=== PATIENT | female | born 1985 | race Caucasian/White ===

== ENCOUNTER 2018-02-24 09:23 | Emergency (ER) | payer SELFPAY ==
[2018-02-24 09:36] VITALS: BP 160/101
--- NOTE | 2018-02-24 09:39 | ED Physician Documentation ---
General Adult - HISTORIAN Historian: patient - HPI Stated Complaint: Cough Chief Complaint: Dyspnea Additional Information: Patient states taht she ahs been having a cough for 3 weeks. Has been having some breathing difficulties for several months. Has been seen and got a ProAir and steroids. It helped for a little bit. Symptoms are worse today. Has wheezing. Has a slight productive cough. Clear to green in nature, no blood noted. No chest pain. Having some mild nasal drainage. No history of asthma. Timing: still present Severity: mild - ROS CONST: no problems. denies: fever, chills - PAST HX Past History: denies: asthma, COPD Other History: none Surgeries/Procedures: , other (lanced skin lesion) Immunizations: referred to PCP Allergies/Adverse Reactions: Allergies Allergy/AdvReac Type Severity Reaction Status Date / Time No Known Allergies Allergy Verified 02/24/18 09:32 Home Medications: Ambulatory Orders Medication Instructions Recorded Albuterol Sulfate [Proair Hfa] 2 puff IH Q4 PRN #1 [email or web address] 02/24/18 Amoxicillin [Trimox] 500 mg PO TID #30 capsule 02/24/18 - SOCIAL HX Smoking History: less than 1 pack/day (1/2 ppd) Alcohol Use: none Drug Use: none - FAMILY HX Family History: No - VITAL SIGNS Vital Signs: Vital Signs Temp Pulse Resp BP Pulse Ox 97.9 F 115 H 15 160/101 96 02/24/18 09:29 02/24/18 09:29 02/24/18 09:29 02/24/18 09:29 02/24/18 09:29 - REVIEWED ASSESSMENTS Nursing Assessment Reviewed: Yes Vitals Reviewed: Yes Progress - Progress Progress: 10:22 Patient seems to be doing OK. No cough noted ED Results Lab/Radiology - Radiology Radiology Impressions: Examination: PA and lateral chest. History: PT STATES SOB X1 YEAR. NO KNOWN HEART OR LUNG CONDITIONS. SMOKER X2O YEAR (Hx) Comparison exam: None available. Findings: PA lateral chest demonstrate a normal cardiac and mediastinal silhouette. No focal infiltrate. No blunting of the costophrenic margins. Osseous structures are appropriate for age. Impression: No acute pulmonary process. General Adult Physical Exam - PHYSICAL EXAM GENERAL APPEARANCE: mild distress EENT: eye inspection normal, ENT inspection normal, pharynx normal, no signs of dehydration. No: purulent nasal drainage NECK: normal inspection, thyroid normal, supple RESPIRATORY: no resp distress, chest non-tender, breath sounds normal, wheezes ( mild expiratory with forced expiration). No: rales, rhonchi CVS: reg rate & rhythm, heart sounds normal, equal pulses, no murmur ABDOMEN: soft, no organomegaly, normal bowel sounds, no abdominal bruit SKIN: warm/dry, normal color EXTREMITIES: no edema NEURO: mood/affect nml, cognition normal Discharge Clincal Impression: Bronchitis Prescriptions: Albuterol Sulfate [Proair Hfa] 2 puff IH Q4 PRN #1 hfa.aer.ad PRN Reason: dyspnea Amoxicillin [Trimox] 500 mg PO TID #30 capsule Referrals: Primary Doctor,No [Primary Care Provider] - 2 Days Additional Instructions: Continue to take your inhaler as needed. It is important for you to establish care with a primary care provider for further workup. Condition: Stable Disposition: 01 HOME, SELF-CARE Decision to Admit: NO Date of Decison to Admit: 02/24/18 Decision Time: 11:09
[2018-02-24 10:07] LABS: BASOPHILS % 0.5 (0.0-1.5); EOSINOPHILS % 4.6 % (0.0-6.8); MEAN CORPUSCULAR VOLUME 98.3 fl (80.0-100.0); NEUTROPHILS # 6.7 # k/uL (1.4-7.7)
[2018-02-24 10:24] LABS: eGFR (African) > 60; eGFR (Non-African) > 60
[2018-02-24] MEDS: IPRATROPIUM/ALBUTEROL SULFATE 3 ML AMPUL.NEB NEB ONE (10:50)
[2018-02-24] MEDS: methylPREDNISolone ACETATE 80 MG/ML VIAL IM ONE (11:00)
--- NOTE | 2018-02-24 14:16 | Diagnostic Imaging Report ---
[facility] [id number] [facility].[address] [id number] Report Submission Date: Feb 24, 2018 10:22:32 AM CDT Patient Study Name: TAVARES LANDEROS Date: Feb 24, 2018 9:57:34 AM CDT Modality Type: DX Gender: F Description: CHEST : 83 Institution: [facility] Physician: BALBINA MACARIO Examination: PA and lateral chest. History: PT STATES SOB X1 YEAR. NO KNOWN HEART OR LUNG CONDITIONS. SMOKER X2O YEAR (Hx) Comparison exam: None available. Findings: PA lateral chest demonstrate a normal cardiac and mediastinal silhouette. No focal infiltrate. No blunting of the costophrenic margins. Osseous structures are appropriate for age. Impression: No acute pulmonary process. Electronically signed on Feb 24, 2018 10:22:32 AM CDT by: Dillon BATES
== END 2018-02-24 11:16 | disposition home or self-care (01) ==
LOC: ED 09:23
DX: J40 Bronchitis, not specified as acute or chronic (principal)
CPT/HCPCS: 71046; 80053; 85025; J1040; 94640; 96372; 99283

== ENCOUNTER 2018-07-22 08:09 | Emergency (ER) | payer SELFPAY ==
[2018-07-22] MEDS ORDERED: IPRATROPIUM/ALBUTEROL SULFATE 3 ML AMPUL.NEB NEB ONE (08:19)
--- NOTE | 2018-07-22 08:28 | ED Physician Documentation ---
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 pt presents to the ED via POV c/o productive cough/congestion x 4 days. pt reports malaise, chills, mild dyspnea with exertion. pt reports she has used an albuterol inh in the past when she has these symptoms. denies hx of asthma or copd or any other HX. pt is a smoker. pt denies current chest pain, dyspnea, syncope/near syncope, headache, dizziness, visual disturbances, n/v/d, fever, rash, sick contacts, dysuria, trauma. melena or hematochezia, bleeding or easy bruising, change in bowel or bladder function. anxiety or depression. ROS Negative unless otherwise specified. - ROS CONST: chills - PAST HX Past History: none. denies: asthma, COPD Surgeries/Procedures: other (Right knee) Allergies/Adverse Reactions: Allergies Allergy/AdvReac Type Severity Reaction Status Date / Time No Known Allergies Allergy Verified 02/24/18 09:32 Home Medications: Ambulatory Orders Medication Instructions Recorded Albuterol Sulfate [Proair Hfa] 2 puff IH Q4 PRN #1 hfa.aer.ad 02/24/18 Amoxicillin [Trimox] 500 mg PO TID #30 capsule 02/24/18 - SOCIAL HX Smoking History: less than 1 pack/day - FAMILY HX Family History: No - VITAL SIGNS Vital Signs: Vital Signs Temp Pulse Resp BP Pulse Ox 160/101 02/24/18 11:16 - REVIEWED ASSESSMENTS Nursing Assessment Reviewed: Yes Vitals Reviewed: Yes ED Results Lab/Radiology - Orders Orders: ED Orders Category Date Time Status Ipratropium/Albuterol Sulfate [Duoneb] Med 07/22/18 08:19 Once 3 ml NEB NOW ONE General Adult Physical Exam - PHYSICAL EXAM GENERAL APPEARANCE: no distress EENT: eye inspection normal, ENT inspection normal, pharynx normal, no signs of dehydration, AGUSTÍN, no nystagmus, TM's nml, purulent nasal drainage. No: pharyngeal erythema NECK: normal inspection, thyroid normal. 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 one tab days 2-5. Keeps working days 6-10 albuterol Inhaler: 2 puffs every 4-6 hours as needed for shortness of breath Prednisone taper pack: once daily taper as directed. Increase fluids like Gatorade or other electrolyte replacement quit smoking Follow up with primary care next week or before if not improving as expected. seek medical care immediately if difficult to wake, difficulty breathing, feeling faint or fainting, increased rash, chest pain, shortness of breath, or fever not controlled by tylenol/motrin, or any concern. PLEASE UNDERSTAND THAT THIS IS AN EMERGENCY EVALUATION FOR YOUR COMPLAINT AND BY NATURE IS LIMITED AND NOT A SUBSTITUTE FOR ONGOING MEDICAL CARE. EVEN THOUGH TEST RESULTS AND TREATMENT PLAN WERE EXPLAINED THERE MAY BE A NEED FOR ADDITIONAL TESTING TO FULLY DETERMINE THE EXTENT OF YOUR ILLNESS/INJURY/OR CONCERN SO YOU SHOULD CONTACT AND OR ESTABLISH WITH A PRIMARY CARE PROVIDER (OR REFERRAL DOCTOR IF APPLICABLE) FOR AN APPOINTMENT SOON POSSIBLE Condition: Good Disposition: 01 HOME, SELF-CARE Decision to Admit: NO (n) Date of Decison to Admit: 07/22/18 Decision Time: 08:20
[2018-07-22 11:49] VITALS: BP 131/72
== END 2018-07-22 08:55 | disposition home or self-care (01) ==
LOC: ED 08:09
DX: J40 Bronchitis, not specified as acute or chronic (principal)
CPT/HCPCS: 94640; 99283; 99284

== ENCOUNTER 2019-03-16 17:56 | Emergency (ER) | payer SELFPAY ==
[2019-03-16] MEDS: LIDOCAINE HCL 1%/EPI. (1:100,000) MDV 20ML VIAL IJ ONE (18:26)
[2019-03-16] MEDS: SODIUM BICARBONATE 2.4 MEQ/5 ML VIAL INJ ONE (18:27)
--- NOTE | 2019-03-16 18:28 | ED Physician Documentation ---
General Adult - HISTORIAN Historian: patient - HPI Stated Complaint: laceration to left foot Chief Complaint: General Adult Onset: minutes Severity: moderate Further Comments: yes (34 year old female patient presents with laceration to left foot. Patient states she knocked a lamp off into the floor, broken glass cut her foot. Last tetanus 5 years ago.) - ROS CONST: no problems EYES/ENT: none CVS/RESP: none GI/: none MS/SKIN/LYMPH: none NEURO/PSYCH: difficulty walking (related to laceration). denies: headache, fainting, dizziness, tingling, numbness, difficulty with speech, anxiety, depression, other - PAST HX Past History: none Surgeries/Procedures: BTL Allergies/Adverse Reactions: Allergies Allergy/AdvReac Type Severity Reaction Status Date / Time No Known Allergies Allergy Verified 03/16/19 18:18 Home Medications: Ambulatory Orders Medication Instructions Recorded Mupirocin 2% Oint. [Bactroban] 1 appl TP BID #1 tube 03/16/19 - SOCIAL HX Smoking History: cigarettes - FAMILY HX Family History: No - VITAL SIGNS Vital Signs: Vital Signs Temp Pulse Resp BP Pulse Ox 96 H 22 140/71 98 03/16/19 18:00 03/16/19 18:00 03/16/19 18:00 03/16/19 18:00 - REVIEWED ASSESSMENTS Nursing Assessment Reviewed: Yes Vitals Reviewed: Yes Progress - Progress Progress: Procedure Note laceration: Length: 5 cm laceration Location: Wound cleaned with chlorhexidine and NS; anesthetized with Lidocaine 1% and Neut 7 ml - patient tolerated well. Irrigated with 1000 NS; no foreign body noted Closed using sterile technique, interrupted sutures 4.0 ethilon x 6 stitches; 1 steri strip to flap Wound edges well approximated. Tetanus: given in ER today Patient tolerated procedure well; reviewed discharge instructions - verbalized understanding. ED Results Lab/Radiology - Orders Orders: ED Orders Category Date Time Status Diph,Pertuss(Acell),Tet Vac/Pf [Adacel] Med 03/16/19 18:19 Discontinued 0.5 ml IM .ONCE ONE Lidocaine 1%/Epinephrine [Xylocaine 1%-EPI 1:100,000] Med 03/16/19 18:05 Discontinued 5 ml IJ NOW ONE Sodium Bicarbonate [Neut] Med 03/16/19 18:05 Discontinued 2.4 meq INJ NOW ONE General Adult Physical Exam - PHYSICAL EXAM GENERAL APPEARANCE: mild distress EENT: eye inspection normal, AGUSTÍN RESPIRATORY: no resp distress CVS: reg rate & rhythm SKIN: warm/dry, normal color, other (laceration to left lateral foot 5 cm; just proximal to 5th MTP joint) EXTREMITIES: non-tender, normal range of motion, no evidence of injury, no edema, J, 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 [Bactroban] 1 appl TP BID #1 tube Referrals: Primary Doctor,No [Primary Care Provider] - 2 Days Additional Instructions: Keep the wound clean and dry until it has healed. You can wash or shower after 24 hours. Do not soak the wound in water and make sure it is dry afterwards (gently pat the area dry with a clean towel). Do not get into a swimming pool, hot tub, aparicio or river until your stitches are removed. To remove your dressing, gently pull it off. If needed, you can dampen it with water then gently pull it off. Clean the laceration twice a day with hibiclens and rinse with water clean away any scabbed area Apply thin coat of antibiotic ointment after cleaning the wound. Cover with non-adherent bandage if able. If you have pain, take simple pain relief medication such as Tylenol or ibuprofen. If bandages or dressings get wet, they will need to be changed. Call your doctor for any signs of symptom of infection redness, drainage, pain. Have your stitches removed at your doctors office in 7-10 days. Discharged with bactroban ointment apply a thin coat twice a day. Condition: Stable Disposition: 01 HOME, SELF-CARE Decision to Admit: NO Decision Time: 18:27
[2019-03-16] MEDS ORDERED: DIPH,PERTUSS(ACELL),TET VAC/PF 0.5 ML DISP.SYRIN IM ONE (18:33)
[2019-03-16] MEDS: DIPH,PERTUSS(ACELL),TET VAC/PF 0.5 ML DISP.SYRIN IM ONE (18:36)
[2019-03-16 18:43] VITALS: BP 120/65
== END 2019-03-16 18:41 | disposition home or self-care (01) ==
LOC: ED 17:56
DX: S91.312A Laceration without foreign body, left foot, initial encounter (principal); W25.XXXA Contact with sharp glass, initial encounter; Y28.0XXA Contact with sharp glass, undetermined intent, initial encounter
CPT/HCPCS: 90471; 90715; 99283; 99284; J7030